=== PATIENT | female | born 1985 | race Two or more races ===

== ENCOUNTER 2016-12-30 10:57 | Observation (INO) | payer MEDICAID ==
[2016-12-25 11:31] VITALS: BMI 38.2
[2016-12-30 12:22] LABS: HEMATOCRIT 36.5 % (34.0-47.0); MEAN CELL VOLUME 89.5 fl (81.0-99.0); MEAN CORPUSCULAR HEMOGLOBIN 30.5 pg (27.0-31.0); MEAN CORPUSCULAR HGB CONC 34.1 g/dL (33.0-37.0); RED CELL DISTRIBUTION WIDTH 12.9 % (11.5-14.5); WHITE BLOOD COUNT 6.6 K/uL (4.8-10.8)
[2016-12-30 12:33] LABS: BLOOD UREA NITROGEN 13 mg/dl (7-17); CALCIUM 9.2 mg/dL (8.4-10.2); CARBON DIOXIDE 27 mmol/L (22-30); CHLORIDE 104 mmol/L (98-107); GFR AFRICAN-AMERICAN > 60; GLUCOSE,RANDOM 95 mg/dL (65-105); POTASSIUM 4.2 MMOL/L (3.6-5.0); SODIUM 141 mmol/l (132-148)
[2016-12-30] MEDS ORDERED: Propofol 10 mg/ml Inj (20 ML) ONE (13:35)
[2016-12-30] MEDS ORDERED: Midazolam 2 MG/2 ML VIAL ONE (13:36)
[2016-12-30] MEDS ORDERED: Rocuronium 10 mg/ml (5 ml) ONE (13:36)
[2016-12-30] MEDS ORDERED: Succinylcholine 200 mg/10 ml Inj IV ONE (13:36)
[2016-12-30] MEDS ORDERED: Methylene Blue 10 mg/mL(10ml) IV ONE (13:58)
[2016-12-30] MEDS ORDERED: Bupivacaine 0.5% Inj(30mL) ONE (13:59)
[2016-12-30] MEDS ORDERED: Lidocaine 2% w Epi 1:100,000 Inj IJ ONE (13:59)
[2016-12-30] MEDS ORDERED: Lactated Ringer's 1,000 ML IV ONE (14:17)
[2016-12-30] MEDS ORDERED: Bupivacaine 0.5% 50 ML IJ ONE (14:45)
[2016-12-30] MEDS ORDERED: HEMOSTATIC MATRIX 10 ML DIS.NEEDLE TOP ONE (15:15)
[2016-12-30] MEDS ORDERED: Neostigmine Methylsulfate 2 MG/2 ML ML IV ONE (15:47)
--- NOTE | 2016-12-30 16:04 | PCM.SURG1 ---
Surgeon's Initial Post Op Note - Surgeon's Notes Surgeon: alissa chow md Facility Supervisor: Princess PELLETIER Type of Anesthesia: General Endo, Local Pre-Operative Diagnosis: Chronic pelvic pain. LArge adnexal mass right ovary. PCOS Operative Findings: large right ovarian dermoid. normal bladder anatomy. normal left ovary and tubes. normal uterus appearing Post-Operative Diagnosis: Chronic pelvic pain. LArge adnexal mass right ovary. PCOS. Right ovarian dermoid cyst Operation Performed: robotic excision of dermoid cyst. Cystoscopy Specimen/Specimens Removed: right ovarian dermoid. pelvic washing Estimated Blood Loss: EBL {In ML}: 5 Blood Products Given: N/A Drains Used: No Drains Post-Op Condition: Good Date of Surgery/Procedure: 12/30/16 Time of Surgery/Procedure: 16:04
--- NOTE | 2016-12-30 16:07 | PCM.OP ---
Operative Report - Operative Report Date of Surgery/Procedure: 12/30/16 Time of Surgery/Procedure: 16:05 Surgeon: alissa chow md Senior Scheduler: celestine fernandez Anesthesia/Sedation: general with ET tube Pre-Operative Diagnosis: chronic pelvic pain. right adnexal mass. PCOS Post-Operative Diagnosis: chronic pelvic pain. right adnexal mass. PCOS. right dermoid cyst Indication for Surgery: worsening pelvic pain Operative Findings: Right large dermoid cyst approx 1o cm Procedure/Operation Description: robotic assisted excision of drmoid cyst. diagnostic cystoscopy. Detailed operative procedure. This is a 31 years old female with chronic pelvic pain, severe dyspareunia and pelvic pain and history of PCOS possible endoemtriosis. This patient described this pain as debilitating and limiting her daily activity and adversely affecting her quality of life. Following a complete work up at the office which included a U/S, vaginal cultures, hematology and chemistry, decision was made to proceed with a robotic assisted excision of complex pelvic mass, likely endometrioma vs dermoid cyst. After proper consent was obtained from the patient, she was taken to the operating room, placed in lithotomy position, her legs placed in adjustable stirrups. Careful attention was placed to avoid hyper flexion or hyper-rotation of the lower extremities. Exam under anesthesia revealed bulky uterus, normal cervix with adnexal fullness bilaterally, mainly on right adnexa. She was prepped and draped for a robotic excision of adnexal mass. Ortiz catheter was placed in sterile condition. vaginal manipulatoir was placed in via the cervix and secured. While tenting the abdominal wall, a veres needle was inserted through the umbilicus and a pneumoperitoneum was obtained. A 1cm vertical incision was made approx. 3 cm above the umbilicus and a trocar and sleeve were introduced. The patient was placed in Trendelenburg position. A robotic camera was introduced and an initial survey of the pelvic cavity revealed extensive peritoneal adhesions. The left ovary appeared enlarged but c/w PCOS and the right ovary appeared enlarged with a mass complex in appearance approx 10 cm in diameter. Three robotic ports were used for the procedure and were inserted through 8 mm incisions. The first port was inserted on the right side approximately 7 cm cephalic to the superior iliac crest; the second port was placed in a mirror image location on the contralateral side the third port was placed on the patient right side approx. 5 cm superior to the iliac crest. An ward assistant port was placed through an 8 mm incision approximately 8 cm left lateral to the camera port. Lateral side docking was achieved with the robot with no difficulty. A monopolar shear was inserted through the port on the right side and a PK was inserted through the port on the left side. Meticulous lysis of peritoneal adhesions was accomplished with the josh and the PK. On the patient's right side, extensive lysis of adhesions was completed loops of bowels were freed and the right ovary was cleared of this tight of adhesions. Next an incision was made into the capsule of the dermoid and sharp and blunt dissection was completed to anucleate the large right ovarian dermoid. carefull attention was made to preserve as much ovarian tissue as possible and only remove the dermoid in an intact form. The complete dermoid was enucleated and placed in an endocatch to be removed from the cavity and sent to pathology. The mass was extracted from the pelvic cavity and sent to pathology labeled appropriately. The abdomen was throughout irrigated and cleared of clots and debris. The ureters were once again visualized with peristalsis and excellent hemostasis noted throughout. Flow-seal and inter-seed to prevent further adhesions placed over the excision / ablation beds. All instruments were removed under direct visualization; the robotic arms were undocked. Pneumoperitoneum was reduced. The camera port was closed at a fascial layer with a 2-0 vicryl. All skin incisions were closed with a 4-0 monocryl in a subcuticular fashion. due to the chronic nature of the chronic pelvic pain and possible etiology of bladder pain syndrome, a diagnostic cystoscopy was completed to r/u bladder pain syndrom or IC. The bladder was distended with approx 300 cc of saline and a cystoscope was intoduced. Initial survey was completed and asessment was c/w normal bladder anatomy, normal trigone with ureteral orfices, normal urethra and normal bladder mucosa. The Vcare was removed and Ortiz remained to be removed the next morning. Prior to incision, patient received prophylactic antibiotics ( Ancef), prior to closure, sponge lap and needle count were correct times two. Patient was taken to recovery room under stable condition. Estimated Blood Loss: 20 Blood Replaced: none Sponge/Instrument Count: none Drains: none Complications: none Specimen: Right ovarian dermoid Discharge & Condition: discharge home when criteria met
[2016-12-30] MEDS ORDERED: Oxycodone/Acetaminophen 5/325 mg Tab PO PRN (16:08)
[2016-12-30] MEDS ORDERED: Lactated Ringer's 1,000 ML IV SCH (16:15)
[2016-12-30] MEDS: HYDROmorphone 0.5 mg/0.5 ml ISec IVP PRN ×4 (16:30→17:30)
[2016-12-30] MEDS: Lactated Ringer's 1,000 ML IV SCH ×2 (19:00→22:09)
[2016-12-31] MEDS: ceFAZolin IV 2 gm in Dextrose 2 GM/50 ML BAG IVPB SCH ×4 (01:06→16:35)
[2016-12-31 07:56] LABS: BASO % 0.2 % (0.0-2.0); EOS % 0.1 % (0.0-4.0); HEMATOCRIT 33.8 % (34.0-47.0); LYMPH # 1.6 K/uL (1.0-4.3); LYMPH % 12.7 % (20.0-40.0); MEAN CORPUSCULAR HEMOGLOBIN 30.1 pg (27.0-31.0); MEAN CORPUSCULAR HGB CONC 33.4 g/dL (33.0-37.0); MEAN PLATELET VOLUME 8.2 fl (7.2-11.7); MONO # 0.6 K/uL (0.0-0.8); MONO % 5.1 % (0.0-10.0); NEUT # 10.1 K/uL (1.8-7.0); NEUT % 81.9 % (50.0-75.0); RED CELL DISTRIBUTION WIDTH 12.9 % (11.5-14.5); WHITE BLOOD COUNT 12.3 K/uL (4.8-10.8)
[2016-12-31 08:08] LABS: BLOOD UREA NITROGEN 11 mg/dl (7-17); CALCIUM 8.7 mg/dL (8.4-10.2); CARBON DIOXIDE 26 mmol/L (22-30); CHLORIDE 104 mmol/L (98-107); GFR AFRICAN-AMERICAN > 60; GLUCOSE,RANDOM 102 mg/dL (65-105); POTASSIUM 3.7 MMOL/L (3.6-5.0); SODIUM 139 mmol/l (132-148)
[2016-12-31 08:52] VITALS: RESP 18
[2016-12-31] MEDS: Lactated Ringer's 1,000 ML IV SCH (09:10)
--- NOTE | 2016-12-31 11:17 | CP.PCM.PN ---
Subjective - Date & Time of Evaluation Date of Evaluation: 12/31/16 Time of Evaluation: 10:40 - Subjective Subjective: Note for Dr. Forman Patient seen and examined at bedside this AM. Patient had a fever of 101.2. repeat temperature 99.8. patient had one episode of nausea after drinking carbonated beverage last night. Self voided. Tolerating Diet. OOB and ambulating. Denies fevers, chills, chest pain, shortness of breath. Incision clean, dry and intact Objective - Vital Signs/Intake and Output Vital Signs (last 24 hours): Temp Pulse Resp BP Pulse Ox 101.2 F H 89 18 101/53 L 97 12/31/16 08:15 12/31/16 08:15 12/31/16 08:15 12/31/16 08:15 12/31/16 08:15 Intake and Output: 12/31/16 12/31/16 06:59 18:59 Intake Total 400 1520 Output Total 150 450 Balance 250 1070 - Medications Medications: Current Medications Hydromorphone HCl (Dilaudid) 2 mg IVP Q3H PRN PRN Reason: Pain, severe (8-10) Last Admin: 12/31/16 07:08 Dose: 2 mg Cefazolin Sodium/Dextrose (Ancef Iv 2 Gm Duplex) 2 gm in 50 mls @ 50 mls/hr IVPB Q8 MILAGROS PRN Reason: Protocol Last Admin: 12/31/16 09:11 Dose: 50 mls/hr Lactated Ringer's (Lactated Ringer's) 1,000 mls @ 100 mls/hr IV .Q10H MILAGROS Last Admin: 12/31/16 09:10 Dose: 100 mls/hr Lactated Ringer's (Lactated Ringer's) 1,000 mls @ 100 mls/hr IV .Q10H MILAGROS Ketorolac Tromethamine (Toradol) 30 mg IVP Q6H MILAGROS Last Admin: 12/31/16 09:15 Dose: 30 mg Ondansetron HCl (Zofran Inj) 4 mg IVP Q6 PRN PRN Reason: Nausea/Vomiting Last Admin: 12/30/16 21:06 Dose: 4 mg Oxycodone/Acetaminophen (Percocet 5/325 Mg Tab) 1 tab PO Q4H PRN PRN Reason: Pain, moderate (4-7) Stop: 01/02/17 16:09 - Labs Labs: 12/31/16 07:15 12/31/16 07:15 - Constitutional Appears: Non-toxic, No Acute Distress - Head Exam Head Exam: ATRAUMATIC - Eye Exam Eye Exam: EOMI. absent: Scleral icterus - ENT Exam ENT Exam: Mucous Membranes Moist - Respiratory Exam Respiratory Exam: NORMAL BREATHING PATTERN. absent: Accessory Muscle Use, Respiratory Distress - Cardiovascular Exam Cardiovascular Exam: +S1, +S2. absent: Bradycardia, Tachycardia - GI/Abdominal Exam GI & Abdominal Exam: Soft, Tenderness, Normal Bowel Sounds. absent: Distended, Firm, Guarding, Rigid Additional comments: appropriately tender around incisions - Extremities Exam Extremities Exam: Normal Inspection. absent: Calf Tenderness - Neurological Exam Neurological Exam: Alert, Awake, Oriented x3 - Psychiatric Exam Psychiatric exam: Normal Affect - Skin Skin Exam: Normal Color, Warm Assessment and Plan - Assessment and Plan (Free Text) Assessment: 31F w/ PCOS s/p robotic excision of dermoid cyst. Cystoscopy Plan: - will receive on more dose of antibiotics - cleared for discharge - incision is covered by dermabond - cleared to shower - no bathing or swimming in ocean - if fever of greater than 100.4 take over the Tylenol. if persists go to the ER - To follow up in two weeks with Dr. Forman - d/w Dr. Dickson Wang PGY1
[2016-12-31 16:23] VITALS: BP 125/74; PULSE 89; O2SAT 98
[2016-12-31 17:36] VITALS: TEMP 99.5
== END 2016-12-31 19:00 | disposition home or self-care (01) ==
LOC: H.OPSURG 10:57 → H.PEDS 16:08
PROVIDERS: ADMIT Obstetrics & Gynecology; ATTEND Obstetrics & Gynecology
DX: E28.2 Polycystic ovarian syndrome (principal); D27.0 Benign neoplasm of right ovary; N94.10 Unspecified dyspareunia; N85.2 Hypertrophy of uterus; K66.0 Peritoneal adhesions (postprocedural) (postinfection); E66.01 Morbid (severe) obesity due to excess calories; Z68.41 Body mass index [BMI] 40.0-44.9, adult
CPT/HCPCS: 36415; 49329; 58662; 80048; 85025; 85027; 86850; 86900; 88104; 88305; G0378; J0330; J0690; J1170; J1885; J2001; J2250; J2405; J2704; J2710; J3010; J7120